=== PATIENT | female | born 1975 | race Caucasian/White ===

== ENCOUNTER 2021-01-15 10:07 | Observation (INO) | payer SELFPAY ==
[2021-01-15] MEDS ORDERED: Magnesium 2 GM/50 ML BAG (IN WATER) ONE (11:26)
[2021-01-15] MEDS ORDERED: Metoclopramide HCl 10 MG/2 ML VIAL ONE (11:26)
[2021-01-15 11:27] LABS: #Eosinphils 0.1 thou/uL (0.0-0.7); #Monocytes 0.4 thou/uL (0.11-0.59); #Neutrophils 2.9 thou/uL (1.40-6.50); %Basophils 0.2 % (0.0-1.0); %Eosinophils 1.5 % (0.0-10.0); %Lymphocytes 23.3 % (21.0-51.0); %Monocytes 8.8 % (0.0-10.0); %Neutrophils 66.2 % (42.0-75.0); Hemoglobin 14.8 g/dL (12.0-16.0); Mean Corpuscular HGB CONC 32.3 g/dL (32.0-36.0); Mean Corpuscular Hemoglobin 31.1 pg (27.0-31.0); Mean Corpuscular Volume 96.1 fL (78.0-98.0); Mean Platelet Volume 9.1 fL (7.4-10.4); Platelet Count 158 thou/uL (130-400); RBC Distribution Width 12.6 % (11.5-14.5); Red Blood Cell (RBC) Count 4.77 mill/uL (4.20-5.40); White Blood Cell (WBC) Count 4.4 thou/uL (4.8-10.8)
[2021-01-15] MEDS ORDERED: Acetaminophen 500 MG TAB ONE (11:27)
[2021-01-15] MEDS ORDERED: diphenhydrAMINE 50 MG/ML VIAL ONE (11:27)
[2021-01-15] MEDS ORDERED: Ketorolac Tromethamine 30 MG/ML VIAL ONE ×2 (11:27→20:40)
[2021-01-15 11:38] LABS: BHCG - Serum Negative (NEGATIVE); Pregs Control Background? CLEAR/WHITE (CLR/WHITE); Pregs Control Bar Appear? YES (CONTROL BAR)
[2021-01-15 11:59] LABS: ALT (SGPT) 458 U/L (8-55); AST (SGOT) 256 U/L (5-34); Albumin 3.9 g/dL (3.5-5.0); Alkaline Phosphatase 142 U/L (40-110); Anion Gap 11 mmol/L (10-20); BUN (Urea Nitrogen) 17 mg/dL (7.0-18.7); Bilirubin, Total 1.3 mg/dL (0.2-1.2); Calc. Creatinine Clearance 0 mL/min (70-130); Calcium 9.2 mg/dL (7.8-10.44); Carbon Dioxide 26 mmol/L (22-29); Chloride 106 mmol/L (98-107); Globulin 3.8 g/dL (2.4-3.5); Glucose 103 mg/dL (70-105); Potassium 3.8 mmol/L (3.5-5.1); Protein, Total 7.7 g/dL (6.0-8.3); Sodium 139 mmol/L (136-145)
[2021-01-15 13:04] LABS: Acetaminophen Less than 6.0 mcg/mL (10.0-30.0); Lipase 35 U/L (8-78)
[2021-01-15 13:26] LABS: HBCM Index 0.07 S/CO (0-0.79); HBSAg Index 0.24 S/CO (0-0.99); Hep A IgM AB Non-Reactive (NonReactive); Hep A IgM S/CO 0.13 S/CO (0-0.79); Hep B Surf Ag Non-Reactive S/CO (NonReactive); Hep C IgG Ab Non-Reactive (NonReactive); Hep C Index 0.09 S/CO (0-0.79); Hepatitis B Core IgM Abs Non-Reactive (NonReactive)
[2021-01-15 13:28] LABS: PTT 27.5 sec (22.9-36.1); Prothrombin Time 13.3 sec (12.0-14.7)
[2021-01-15] MEDS ORDERED: Piperacillin/Tazobactam 3.375 GM VIAL ONE (15:41)
[2021-01-15] MEDS ORDERED: Iothalamate Meglumine 60% 50 ML VIAL FS ONE (17:25)
[2021-01-15 17:31] LABS: SARS-CoV-2 NAA Rapid Test Not Detected (NotDetected)
[2021-01-15] MEDS ORDERED: Dextrose 5% in Water 1,000 ML IV PRN (18:57)
[2021-01-15] MEDS ORDERED: Dextrose 50% Abboject 50 ML SYRINGE SLOW IVP PRN (18:57)
[2021-01-15] MEDS ORDERED: Ketorolac Tromethamine 30 MG/ML VIAL IVP PRN (19:00)
[2021-01-15] MEDS ORDERED: Ondansetron PF 4 MG/2 ML Vial IVP PRN (19:00)
[2021-01-15 21:27] VITALS: BMI 26.5
[2021-01-16] MEDS ORDERED: cefOXitin Sodium/Dextrose 2 GM/50 ML BAG ONE (09:04)
[2021-01-16] MEDS ORDERED: Bupivacaine 0.25% HCL 30 ML VIAL ONE (09:10)
[2021-01-16] MEDS ORDERED: Lidocaine 1% w/Epinephrine 1:100K 20 ML VIAL ONE (09:10)
[2021-01-16] MEDS ORDERED: Iothalamate Meglumine 60% 50 ML VIAL FS ONE (09:10)
[2021-01-16] MEDS ORDERED: Fentanyl 100 MCG/2 ML VIAL ONE ×3 (09:20→12:18)
[2021-01-16] MEDS ORDERED: Midazolam HCl 2 mg/2 ml Vial ONE (09:37)
[2021-01-16 09:50] LABS: ALT (SGPT) 369 U/L (8-55); AST (SGOT) 189 U/L (5-34); Albumin 3.8 g/dL (3.5-5.0); Alkaline Phosphatase 131 U/L (40-110); Anion Gap 11 mmol/L (10-20); BUN (Urea Nitrogen) 13 mg/dL (7.0-18.7); Bilirubin, Total 1.4 mg/dL (0.2-1.2); Calc. Creatinine Clearance 111 mL/min (70-130); Carbon Dioxide 25 mmol/L (22-29); Chloride 106 mmol/L (98-107); Globulin 3.6 g/dL (2.4-3.5); Glucose 94 mg/dL (70-105); Lipase 35 U/L (8-78); Protein, Total 7.4 g/dL (6.0-8.3); Sodium 138 mmol/L (136-145)
[2021-01-16] MEDS ORDERED: Ondansetron PF 4 MG/2 ML Vial ONE ×2 (09:58→12:05)
[2021-01-16] MEDS ORDERED: Lidocaine 1% PF 5 ML VIAL ONE (09:58)
[2021-01-16] MEDS ORDERED: Glycopyrrolate 0.2 MG/ML 5 ML SYRINGE ONE (09:58)
[2021-01-16] MEDS ORDERED: Dexamethasone 20 MG/5 ML VIAL ONE (09:58)
[2021-01-16] MEDS ORDERED: ePHEDrine Sulfate 50 MG/10 ML VIAL ONE (09:58)
[2021-01-16] MEDS ORDERED: Ketorolac Tromethamine 30 MG/ML VIAL ONE (09:58)
[2021-01-16] MEDS ORDERED: PROPOFOL 200 MG/20 ML VIAL ONE (09:58)
[2021-01-16] MEDS ORDERED: Rocuronium Bromide 10 MG/ML (10ML VIAL) ONE (09:58)
[2021-01-16] MEDS ORDERED: Promethazine HCl 25 MG/ML VIAL SLOW IVP PRN (12:00)
[2021-01-16] MEDS ORDERED: Ondansetron HCl/PF 4 MG/2 ML Vial IVP PRN (12:00)
[2021-01-16] MEDS ORDERED: Promethazine HCl 25 MG/ML VIAL IM PRN (12:00)
[2021-01-16] MEDS ORDERED: Meperidine HCl/PF 25 MG/ML VIAL SLOW IVP PRN (12:00)
[2021-01-16] MEDS ORDERED: Ibuprofen 100 MG/5 ML UDCUP PO PRN (12:10)
[2021-01-16] MEDS ORDERED: traMADol HCl 50 MG TAB PO PRN ×2 (12:10)
[2021-01-16] MEDS ORDERED: Promethazine HCl 25 MG/ML VIAL ONE (12:15)
[2021-01-16] MEDS: Acetaminophen 500 MG TAB PO SCH (18:12)
[2021-01-17] MEDS: Acetaminophen 500 MG TAB PO SCH ×3 (00:08→10:54)
[2021-01-17 11:13] VITALS: BP 131/84; TEMP 98.1
== END 2021-01-17 14:19 | disposition home or self-care (01) ==
LOC: ERS 10:07 → SDC/OP 19:14 → T4-A 21:13
PROVIDERS: ADMIT Surgery; ATTEND Surgery
PROC: 0FT44ZZ Resection of Gallbladder, Percutaneous Endoscopic Approach (ICD-10-PCS; principal; 2021-01-16)
PROC: BF101ZZ Fluoroscopy of Bile Ducts using Low Osmolar Contrast (ICD-10-PCS; 2021-01-16)
DX: K80.12 Calculus of gallbladder with acute and chronic cholecystitis without obstruction (principal); K66.0 Peritoneal adhesions (postprocedural) (postinfection); G43.709 Chronic migraine without aura, not intractable, without status migrainosus; E03.9 Hypothyroidism, unspecified; M79.7 Fibromyalgia; Z79.899 Other long term (current) drug therapy; Z20.822 Contact with and (suspected) exposure to COVID-19
CPT/HCPCS: 36415; 47532; 76705; 80053; 80074; 80143; 83690; 84703; 85025; 85610; 85730; 88304; 96365; 96367; 96375; 80307; G0378; J0694; J1100; J1200; J1610; J1885; J2250; J2405; J2543; J2550; J2704; J2765; J3010; J3475; Q9961; S0020; U0002

== ENCOUNTER 2025-06-08 19:47 | Inpatient (IN) | payer SELFPAY ==
[~2025-06-08 19:47] MED LIST: Iopamidol-370 76% 500 ML MDV (1 ML CHARGE) ONE
[2025-06-08 20:38] LABS: #Basophils 0.08 10x3/uL (0.0-0.2); #Eosinophils Less than 0.03 10x3/uL (0.0-0.7); #Monocytes 0.60 10x3/uL (0.11-0.59); #Neutrophils 6.69 10x3/uL (1.40-6.50); %Basophils 0.9 % (0.0-1.0); %Eosinophils 0.1 % (0.0-10.0); %Lymphocytes 16.5 % (21.0-51.0); %Monocytes 6.5 % (0.0-10.0); %Neutrophils 72.3 % (42.0-75.0); Hematocrit 47.6 % (36.0-47.0); Hemoglobin 14.3 g/dL (12.0-16.0); Mean Corpuscular Hemoglobin 29.2 pg (27.0-31.0); Mean Corpuscular Volume 97.1 fL (78.0-98.0); Platelet Count 185 10x3/uL (130-400); Red Blood Cell (RBC) Count 4.90 mill/uL (4.20-5.40); White Blood Cell (WBC) Count 9.25 10x3/uL (4.8-10.8)
[2025-06-08] MEDS ORDERED: Ondansetron PF 4 MG/2 ML Vial ONE (20:47)
[2025-06-08] MEDS ORDERED: Ketorolac Tromethamine 30 MG (1 mL) VIAL ONE (20:47)
[2025-06-08] MEDS ORDERED: Aspirin Chewable 81 MG TAB ONE (20:48)
[2025-06-08 20:59] LABS: BHCG - Serum POSITIVE (NEGATIVE); Pregs Control Background? CLEAR/WHITE (CLR/WHITE); Pregs Control Bar Appear? YES (CONTROL BAR)
[2025-06-08 21:04] LABS: ALT (SGPT) 13 U/L (Less than 34); AST (SGOT) 19 U/L (11-34); Albumin 4.1 g/dL (3.1-4.5); Alkaline Phosphatase 118 U/L (40-110); BUN (Urea Nitrogen) 15 mg/dL (9.8-20.1); Bilirubin, Total 0.2 mg/dL (0.3-1.2); Calc. Creatinine Clearance 0 mL/min (70-130); Calcium 9.3 mg/dL (7.8-10.44); Carbon Dioxide Less than 8 mmol/L (22-29); Chloride 109 mmol/L (98-107); Globulin 4.1 g/dL (2.4-3.5); Glucose 417 mg/dL (70-105); Lipase 60 U/L (8-78); Potassium 3.3 mmol/L (3.5-5.1); Sodium 136 mmol/L (136-145)
[2025-06-08] MEDS ORDERED: NS 0.9% w/ 20 MEQ KCL 1,000 ML ONE (21:16)
[2025-06-08 21:42] LABS: Magnesium 2.5 mg/dL (1.6-2.6)
[2025-06-08 21:43] LABS: Acetaminophen Less than 10 mcg/mL (Less than 10); Salicylate Less than 8.0 mg/dL (Less than 8.0)
[2025-06-08] MEDS ORDERED: NS 0.9% w/ 20 MEQ KCL 1,000 ML IV PRN (22:51)
[2025-06-08] MEDS ORDERED: Senokot S 8.6-50 MG TAB PO PRN (22:56)
[2025-06-08] MEDS ORDERED: Melatonin 3 MG TAB PO PRN (22:56)
[2025-06-08] MEDS ORDERED: Calcium Carbonate 500 MG ChewTAB PO PRN (22:56)
[2025-06-08 23:34] LABS: Bacteria/HPF None Seen HPF (None Seen); CAUTI Indications for Culture < 2yrs of age; Glucose, Urine (Dipstick) Greater than 1000 mg/dL (Negative); Leukocyte Negative Leu/uL (Negative); Protein, Urine (Dipstick) 30 mg/dL (Neg-Trace); Specific Gravity, Urine 1.022 (1.002-1.036); WBC/HPF 0-3 HPF (0-3)
[2025-06-08 23:35] LABS: Analyzer IN Cardio ER; Calcium, Ionized (arterial) 1.30 mmol/L (1.12-1.30); Hematocrit-ABG 41 % (36.0-47.0); Hemoglobin (Hb) 13.9 g/dL (12.0-16.0); Potassium - ABG Lab 4.14 mmol/L (3.70-5.30)
[2025-06-08 23:36] LABS: pH, Arterial 6.814 (7.35-7.45)
[2025-06-08 23:37] LABS: Actual Bicarbonate (HCO3a) 3.1 mEq/L (22-28); Base Excess (BEa) -30.5 mEq/L (-2.0 to +3.0); CO2 Tension 19.8 mmHg (35.0-45.0); O2 Tension (PaO2), arterial 43.4 mmHg (80.0-100.0)
[2025-06-08 23:37] LABS: Urine Culture Reflex Yes Yes
[2025-06-09] MEDS: Sodium Bicarb 50 MEQ/50 ML Abboject 8.4% SYRINGE ONE (00:40)
[2025-06-09] MEDS: INSULIN REGULAR IN 0.9 % NACL 100 ML IVPB SCH (00:52)
[2025-06-09 01:24] LABS: Albumin 3.4 g/dL (3.1-4.5); BUN (Urea Nitrogen) 16 mg/dL (9.8-20.1); BUN/Creatinine Ratio 15.24; Calc. Creatinine Clearance 59 mL/min (70-130); Calcium 8.0 mg/dL (7.8-10.44); Carbon Dioxide Less than 8 mmol/L (22-29); Chloride 109 mmol/L (98-107); Glucose 462 mg/dL (70-105); Magnesium 2.2 mg/dL (1.6-2.6); Potassium 4.2 mmol/L (3.5-5.1); Sodium 135 mmol/L (136-145)
[2025-06-09] MEDS: NS 0.9% w/ 20 MEQ KCL 1,000 ML IV PRN (01:24)
[2025-06-09 04:57] LABS: BUN (Urea Nitrogen) 16 mg/dL (9.8-20.1); Calc. Creatinine Clearance 67 mL/min (70-130); Calcium 8.2 mg/dL (7.8-10.44); Carbon Dioxide Less than 8 mmol/L (22-29); Chloride 117 mmol/L (98-107); Glucose 289 mg/dL (70-105); Potassium 3.7 mmol/L (3.5-5.1); Sodium 145 mmol/L (136-145)
[2025-06-09] MEDS: D5 1/2 NS w/20 mEq KCL 1,000 ML IV PRN (05:18)
[2025-06-09] MEDS: Potassium Chloride 20 MEQ in Premix 1 BAG IVPB SCH ×2 (05:19→14:59)
[2025-06-09] MEDS: Sodium Bicarb 50 MEQ/50 ML Abboject 8.4% SYRINGE IVP SCH (06:14)
[2025-06-09 06:40] LABS: Base Excess -27.5 mEq/L (-2.0 to +3.0); Calcium, Ionized (venous) 1.16 mmol/L (1.16-1.32); Chloride (VBG) 121 mmol/L (98-106); Hematocrit-VBG 37 % (36.0-47.0); Hemoglobin (Hb) 12.5 g/dL (11.7-16.0); Potassium (VBG) 3.81 mmol/L (3.70-5.30); Sodium 148 mmol/L (133-146)
[2025-06-09 06:50] LABS: Actual Bicarbonate (HCO3v) 4.0 mEq/L (22-28)
[2025-06-09] MEDS: D5 LR w/20 mEq KCL 1,000 ML IV SCH (07:29)
[2025-06-09] MEDS: Enoxaparin 40 MG (0.4 mL) SYRINGE SC SCH (08:43)
[2025-06-09] MEDS: Famotidine 20 MG TAB PO SCH (08:43)
[2025-06-09 09:38] LABS: BUN (Urea Nitrogen) 12 mg/dL (9.8-20.1); Calc. Creatinine Clearance 78 mL/min (70-130); Calcium 7.9 mg/dL (7.8-10.44); Carbon Dioxide Less than 8 mmol/L (22-29); Chloride 121 mmol/L (98-107); Glucose 230 mg/dL (70-105); Potassium 3.5 mmol/L (3.5-5.1); Sodium 144 mmol/L (136-145)
[2025-06-09] MEDS: Sodium Bicarbonate 75 MEQ in Dextrose 5 %-0.45 % NaCl 1,000 ML IV SCH (10:53)
[2025-06-09] MEDS: D5 1/2 NS w/20 mEq KCL 1,000 ML IV SCH (11:01)
[2025-06-09 13:54] LABS: Anion Gap 25 mmol/L (10-20); BUN (Urea Nitrogen) 11 mg/dL (9.8-20.1); Calc. Creatinine Clearance 77 mL/min (70-130); Calcium 8.5 mg/dL (7.8-10.44); Carbon Dioxide Less than 8 mmol/L (22-29); Chloride 117 mmol/L (98-107); Glucose 166 mg/dL (70-105); Potassium 3.1 mmol/L (3.5-5.1); Sodium 146 mmol/L (136-145)
[2025-06-09 17:21] LABS: Anion Gap 17 mmol/L (10-20); BUN (Urea Nitrogen) 10 mg/dL (9.8-20.1); Calc. Creatinine Clearance 75 mL/min (70-130); Calcium 8.8 mg/dL (7.8-10.44); Carbon Dioxide 11 mmol/L (22-29); Chloride 120 mmol/L (98-107); Glucose 167 mg/dL (70-105); Potassium 3.4 mmol/L (3.5-5.1); Sodium 145 mmol/L (136-145)
[2025-06-09 21:32] LABS: Anion Gap 15 mmol/L (10-20); BUN (Urea Nitrogen) 10 mg/dL (9.8-20.1); Calc. Creatinine Clearance 85 mL/min (70-130); Calcium 8.6 mg/dL (7.8-10.44); Carbon Dioxide 13 mmol/L (22-29); Chloride 118 mmol/L (98-107); Glucose 179 mg/dL (70-105); Magnesium 1.7 mg/dL (1.6-2.6); Potassium 3.2 mmol/L (3.5-5.1); Sodium 143 mmol/L (136-145)
[2025-06-09] MEDS: Potassium Phosphate 30 MMOL in Sodium Chloride 0.9% 250 ML 250 ML IVPB SCH (22:11)
[2025-06-10] MEDS: Dextrose 50% Abboject 50 ML SYRINGE SLOW IVP PRN (00:54)
[2025-06-10 01:05] LABS: Anion Gap 10 mmol/L (10-20); BUN (Urea Nitrogen) 9 mg/dL (9.8-20.1); Calc. Creatinine Clearance 91 mL/min (70-130); Calcium 8.5 mg/dL (7.8-10.44); Carbon Dioxide 15 mmol/L (22-29); Chloride 117 mmol/L (98-107); Glucose 160 mg/dL (70-105); Potassium 2.9 mmol/L (3.5-5.1); Sodium 139 mmol/L (136-145)
[2025-06-10] MEDS: Magnesium 2 GM/50 ML(in water) 2 GM in Premix 1 BAG IVPB SCH (01:29)
[2025-06-10] MEDS: Potassium Chloride 20 MEQ in Premix 1 BAG IVPB SCH ×2 (01:32→07:37)
[2025-06-10 04:46] LABS: #Basophils Less than 0.03 10x3/uL (0.0-0.2); #Eosinophils Less than 0.03 10x3/uL (0.0-0.7); #Monocytes 0.56 10x3/uL (0.11-0.59); #Neutrophils 4.32 10x3/uL (1.40-6.50); %Basophils 0.4 % (0.0-1.0); %Eosinophils 0.2 % (0.0-10.0); %Lymphocytes 11.1 % (21.0-51.0); %Monocytes 10.1 % (0.0-10.0); %Neutrophils 77.5 % (42.0-75.0); Hematocrit 37.0 % (36.0-47.0); Hemoglobin 12.3 g/dL (12.0-16.0); Mean Corpuscular Hemoglobin 29.4 pg (27.0-31.0); Mean Corpuscular Volume 88.5 fL (78.0-98.0); Platelet Count 102 10x3/uL (130-400); Red Blood Cell (RBC) Count 4.18 mill/uL (4.20-5.40); White Blood Cell (WBC) Count 5.57 10x3/uL (4.8-10.8)
[2025-06-10 06:08] LABS: Albumin 2.9 g/dL (3.1-4.5); Chloride 115 mmol/L (98-107); Potassium 3.3 mmol/L (3.5-5.1); Sodium 138 mmol/L (136-145)
[2025-06-10 06:09] LABS: Calcium 8.4 mg/dL (7.8-10.44); Globulin 2.9 g/dL (2.4-3.5); Glucose 192 mg/dL (70-105)
[2025-06-10 06:10] LABS: Anion Gap 13 mmol/L (10-20); Carbon Dioxide 13 mmol/L (22-29); Triglycerides 227 mg/dL (Less than 150)
[2025-06-10 06:12] LABS: Alkaline Phosphatase 80 U/L (40-110); Bilirubin, Total 0.4 mg/dL (0.3-1.2)
[2025-06-10 07:05] LABS: BUN (Urea Nitrogen) 8 mg/dL (9.8-20.1); Calc. Creatinine Clearance 87 mL/min (70-130)
[2025-06-10 07:06] LABS: Cholesterol 223 mg/dl (< 200 Desired)
[2025-06-10 07:07] LABS: ALT (SGPT) 9 U/L (Less than 34); AST (SGOT) 25 U/L (11-34); HDL Cholesterol 32 mg/dL (>60 Neg Risk); LDL Cholesterol, Calculated 146 mg/dL
[2025-06-10 07:16] LABS: Cardiac Risk 7.0 (Less than 4.5)
[2025-06-10] MEDS ORDERED: Potassium Chloride 20 MEQ in Premix 1 BAG IVPB SCH (08:00)
[2025-06-10] MEDS: Acetaminophen 325 MG TAB PO PRN (09:53)
[2025-06-10] MEDS ORDERED: Dextrose 50% Abboject 50 ML SYRINGE SLOW IVP PRN (09:57)
[2025-06-10] MEDS ORDERED: Glucagon 1 MG/ML KIT IM PRN (09:57)
[2025-06-10 11:11] LABS: Magnesium 2.5 mg/dL (1.6-2.6)
[2025-06-10] MEDS: Insulin Glargine 30 UNITS/0.3 ML VIAL SC SCH ×2 (11:20→21:03)
[2025-06-10] MEDS: Sodium Phosphate 40 MMOL in Sodium Chloride 0.9% 250 ML 250 ML IVPB SCH (14:30)
[2025-06-10 22:23] LABS: Anion Gap 16 mmol/L (10-20); BUN (Urea Nitrogen) 7 mg/dL (9.8-20.1); Calc. Creatinine Clearance 97 mL/min (70-130); Calcium 8.5 mg/dL (7.8-10.44); Carbon Dioxide 18 mmol/L (22-29); Chloride 111 mmol/L (98-107); Glucose 257 mg/dL (70-105); Magnesium 2.1 mg/dL (1.6-2.6); Potassium 2.7 mmol/L (3.5-5.1); Sodium 142 mmol/L (136-145)
[2025-06-11 05:15] LABS: #Basophils Less than 0.03 10x3/uL (0.0-0.2); #Eosinophils Less than 0.03 10x3/uL (0.0-0.7); #Monocytes 0.48 10x3/uL (0.11-0.59); #Neutrophils 1.61 10x3/uL (1.40-6.50); %Basophils 0.6 % (0.0-1.0); %Eosinophils 0.6 % (0.0-10.0); %Lymphocytes 36.7 % (21.0-51.0); %Monocytes 14.1 % (0.0-10.0); %Neutrophils 47.1 % (42.0-75.0); Hematocrit 38.6 % (36.0-47.0); Hemoglobin 12.8 g/dL (12.0-16.0); Mean Corpuscular Hemoglobin 29.4 pg (27.0-31.0); Mean Corpuscular Volume 88.7 fL (78.0-98.0); Platelet Count 114 10x3/uL (130-400); Red Blood Cell (RBC) Count 4.35 mill/uL (4.20-5.40); White Blood Cell (WBC) Count 3.41 10x3/uL (4.8-10.8)
[2025-06-11 05:16] VITALS: BMI 25.0
[2025-06-11 05:25] LABS: ALT (SGPT) 12 U/L (Less than 34); AST (SGOT) 18 U/L (11-34); Albumin 2.9 g/dL (3.1-4.5); Alkaline Phosphatase 88 U/L (40-110); Anion Gap 13 mmol/L (10-20); BUN (Urea Nitrogen) 7 mg/dL (9.8-20.1); Bilirubin, Total 0.7 mg/dL (0.3-1.2); Calc. Creatinine Clearance 102 mL/min (70-130); Calcium 8.9 mg/dL (7.8-10.44); Carbon Dioxide 22 mmol/L (22-29); Chloride 109 mmol/L (98-107); Globulin 3.3 g/dL (2.4-3.5); Glucose 327 mg/dL (70-105); Magnesium 2.3 mg/dL (1.6-2.6); Potassium 3.5 mmol/L (3.5-5.1); Sodium 140 mmol/L (136-145)
[2025-06-11] MEDS ORDERED: Insulin Glargine 30 UNITS/0.3 ML VIAL SC SCH (10:15)
[2025-06-11] MEDS: Albumin 25% 25 GM (100 mL) BOT IVPB SCH (12:14)
[2025-06-11] MEDS: Insulin Glargine 30 UNITS/0.3 ML VIAL SC SCH (20:22)
[2025-06-12 06:19] LABS: #Basophils Less than 0.03 10x3/uL (0.0-0.2); #Eosinophils 0.03 10x3/uL (0.0-0.7); #Monocytes 0.27 10x3/uL (0.11-0.59); #Neutrophils 1.06 10x3/uL (1.40-6.50); %Basophils 0.5 % (0.0-1.0); %Eosinophils 1.4 % (0.0-10.0); %Lymphocytes 35.9 % (21.0-51.0); %Monocytes 12.4 % (0.0-10.0); %Neutrophils 48.9 % (42.0-75.0); Hematocrit 30.8 % (36.0-47.0); Hemoglobin 9.9 g/dL (12.0-16.0); Mean Corpuscular Hemoglobin 29.1 pg (27.0-31.0); Mean Corpuscular Volume 90.6 fL (78.0-98.0); Platelet Count 93 10x3/uL (130-400); Red Blood Cell (RBC) Count 3.40 mill/uL (4.20-5.40); White Blood Cell (WBC) Count 2.17 10x3/uL (4.8-10.8)
[2025-06-12 06:33] LABS: ALT (SGPT) 8 U/L (Less than 34); AST (SGOT) 14 U/L (11-34); Albumin 3.8 g/dL (3.1-4.5); Alkaline Phosphatase 70 U/L (40-110); Anion Gap 13 mmol/L (10-20); BUN (Urea Nitrogen) 9 mg/dL (9.8-20.1); Bilirubin, Total 0.9 mg/dL (0.3-1.2); Calc. Creatinine Clearance 111 mL/min (70-130); Calcium 9.0 mg/dL (7.8-10.44); Carbon Dioxide 26 mmol/L (22-29); Chloride 105 mmol/L (98-107); Globulin 2.2 g/dL (2.4-3.5); Glucose 352 mg/dL (70-105); Magnesium 2.2 mg/dL (1.6-2.6); Potassium 3.5 mmol/L (3.5-5.1); Sodium 140 mmol/L (136-145)
[2025-06-12] MEDS: Insulin Glargine 30 UNITS/0.3 ML VIAL SC SCH (12:27)
[2025-06-13 05:37] LABS: #Basophils Less than 0.03 10x3/uL (0.0-0.2); #Eosinophils 0.09 10x3/uL (0.0-0.7); #Monocytes 0.37 10x3/uL (0.11-0.59); #Neutrophils 1.95 10x3/uL (1.40-6.50); %Basophils 0.5 % (0.0-1.0); %Eosinophils 2.3 % (0.0-10.0); %Lymphocytes 38.0 % (21.0-51.0); %Monocytes 9.3 % (0.0-10.0); %Neutrophils 48.6 % (42.0-75.0); Hematocrit 37.7 % (36.0-47.0); Hemoglobin 12.0 g/dL (12.0-16.0); Mean Corpuscular Hemoglobin 29.3 pg (27.0-31.0); Mean Corpuscular Volume 92.0 fL (78.0-98.0); Platelet Count 126 10x3/uL (130-400); Red Blood Cell (RBC) Count 4.10 mill/uL (4.20-5.40); White Blood Cell (WBC) Count 4.00 10x3/uL (4.8-10.8)
[2025-06-13 05:53] LABS: Anion Gap 16 mmol/L (10-20); BUN (Urea Nitrogen) 16 mg/dL (9.8-20.1); Calc. Creatinine Clearance 93 mL/min (70-130); Calcium 10.0 mg/dL (7.8-10.44); Carbon Dioxide 28 mmol/L (22-29); Chloride 102 mmol/L (98-107); Glucose 273 mg/dL (70-105); Magnesium 2.3 mg/dL (1.6-2.6); Potassium 3.8 mmol/L (3.5-5.1); Sodium 142 mmol/L (136-145)
[2025-06-13] MEDS: Insulin Glargine 30 UNITS/0.3 ML VIAL SC SCH (08:36)
[2025-06-13 09:17] VITALS: BP 106/76; TEMP 98
== END 2025-06-13 11:35 | disposition home or self-care (01) | DRG 638 ==
LOC: ERS 19:47 → IMCU/EMU 22:56 → T4-B 06-10 18:26
PROVIDERS: ADMIT Internal Medicine; ATTEND Internal Medicine
DX: E10.10 Type 1 diabetes mellitus with ketoacidosis without coma (principal); D61.818 Other pancytopenia; F33.9 Major depressive disorder, recurrent, unspecified; E03.9 Hypothyroidism, unspecified; E87.6 Hypokalemia; M79.7 Fibromyalgia; E78.1 Pure hyperglyceridemia; I89.0 Lymphedema, not elsewhere classified; E88.09 Other disorders of plasma-protein metabolism, not elsewhere classified; R13.19 Other dysphagia; Z79.899 Other long term (current) drug therapy; Z79.890 Hormone replacement therapy; Z90.710 Acquired absence of both cervix and uterus
CPT/HCPCS: 36415; 36416; 71045; 71275; 80048; 80053; 80061; 80307; 81001; 82010; 82550; 82805; 83036; 83605; 83690; 83735; 83880; 84100; 84443; 84478; 84484; 84702; 84703; 85025; 87077; 87081; 87086; 87428; 87430; 93005; 96365; 96366; 96375; J1650; J1815; J1885; J2405; J2550; J3475; J3480; J7030; J7050; J7120; J7999; P9047; Q9967